=== PATIENT | female | born 1980 | race African-American/Black ===

== ENCOUNTER 2016-09-27 11:01 | Emergency (ER) | payer MEDICAID, OTHER ==
[~2016-09-27] VITALS: Ht 157.5 cm; Wt 72.7 kg
[~2016-09-27 11:01] MED LIST: IBUP-1827 PO; IMI25 PO; PROM25TA14 PO
[2016-09-27 11:13] VITALS: BP 114/85; PULSE 80; RESP 16; O2SAT 100
[2016-09-27 11:51] LABS: BASOPHILS % (AUTO) 0.4 % (0-3); EOSINOPHILS % (AUTO) 0.7 % (0-5); MONOCYTES % (AUTO) 7.9 % (4-12); Mean Corpuscular Hemoglobin 23.1 pg (27.0-35.0); Mean Corpuscular Volume 72.4 fL (81-100); NEUTROPHILS % (AUTO) 51.1 % (40-74); Platelet Count 317 bil/L (150-400)
[2016-09-27 12:33] LABS: Magnesium 1.9 mg/dL (1.6-2.6)
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
[2016-09-27 12:56] LABS: APPEARANCE,URINE HAZY (CLEAR,HAZY); COLOR,URINE STRAW (YELLOW); OCCULT BLOOD,URINE NEGATIVE (NEGATIVE); UROBILINOGEN,URINE NORMAL (NORMAL)
[2016-09-27] MEDS ORDERED: 0.9% Sodium Chloride 1,000 ML IV ONE (12:58)
[2016-09-27] MEDS ORDERED: MetoCLOpramide 5 mg/mL 2 mL Inj IVPUSH ONE (13:00)
== END 2016-09-27 13:37 | disposition home or self-care (01) ==
LOC: SED 11:01
DX: O99.351 Diseases of the nervous system complicating pregnancy, first trimester (principal); G43.909 Migraine, unspecified, not intractable, without status migrainosus; F17.200 Nicotine dependence, unspecified, uncomplicated; Z3A.01 Less than 8 weeks gestation of pregnancy; Z88.8 Allergy status to other drugs, medicaments and biological substances
CPT/HCPCS: 36415; 80053; 81000; 81025; 83735; 84702; 85025; 87086; 87088; 96361; 96374; 96375; 99285; J1200; J2765; J7030

== ENCOUNTER 2016-10-06 15:49 | Emergency (ER) | payer OTHER ==
[~2016-10-06] VITALS: Ht 160 cm; Wt 73.6 kg
[2016-10-06 16:08] VITALS: BP 111/68; PULSE 100; RESP 18; O2SAT 100
[2016-10-06 17:16] LABS: BASOPHILS % (AUTO) 0.1 % (0-3); EOSINOPHILS % (AUTO) 0.9 % (0-5)
[2016-10-06 17:20] LABS: MONOCYTES % (AUTO) 6.8 % (4-12); Mean Corpuscular Hemoglobin 22.9 pg (27.0-35.0); Mean Corpuscular Volume 72.4 fL (81-100); NEUTROPHILS % (AUTO) 59.3 % (40-74); Platelet Count 284 bil/L (150-400)
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
[2016-10-06 20:11] LABS: APPEARANCE,URINE CLEAR (CLEAR,HAZY); COLOR,URINE YELLOW (YELLOW); OCCULT BLOOD,URINE NEGATIVE (NEGATIVE); UROBILINOGEN,URINE NORMAL (NORMAL)
--- NOTE | 2016-10-06 20:21 | DRSVH ---
PROCEDURE: US OB<14 WKS+OB TRANSVAG INDICATIONS: ,RLQ pain,spotting, 22K quant OUTSIDE/PRIOR DATING DATA: Last menstrual period (LMP): Not known. LMP-based estimated date of delivery (ALEX): Not applicable. First dating scan (date and location): 10/06/16. Estimated date of delivery (ALEX) from first dating scan: 06/02/17. TECHNIQUE: Real-time scanning was performed of the fetus and maternal pelvic organs, with image documentation. Endovaginal scanning was also performed to better visualize the fetus and maternal ovaries. COMPARISON: None. FINDINGS: Embryo: [place]-rump length measures 0. To 6 cm corresponding to ultrasound estimated gestational age of 5 weeks 6 days. The heart rate measured at the 97 beats per minute. Measurement variability in dating: +/- 4 weeks by LMP, +/- 7 days by mean sac diameter (use before 6 weeks gestation if crown-rump length not able to be measured), +/- 5 days by crown-rump length (6-12 weeks gestation). Maternal organs: A 2.5 x 1.8 x 1.9 cm left corpus luteal cyst is noted. Small amount of free fluid is noted just to the left adnexa. Right adnexa sonographically normal. Limited images through the k idneys demonstrate no hydronephrosis. IMPRESSION: Early intrauterine with ultrasound estimated age of 5 weeks 6 days correspondi ng to ultrasound ALEX of 06/02/17. Dictated by: Dolly Ruiz MD, PhD on 10/06/2016 at 20:17 Approved by: Dolly Ruiz MD, PhD on 10/06/2016 at 20:19
[2016-10-06 20:22] VITALS: BP 105/63; PULSE 77; RESP 18; O2SAT 99
== END 2016-10-06 20:35 | disposition home or self-care (01) ==
LOC: SED 15:49
DX: O46.91 Antepartum hemorrhage, unspecified, first trimester (principal); O99.331 Smoking (tobacco) complicating pregnancy, first trimester; O99.011 Anemia complicating pregnancy, first trimester; R10.30 Lower abdominal pain, unspecified; Z3A.01 Less than 8 weeks gestation of pregnancy; Z88.8 Allergy status to other drugs, medicaments and biological substances

== ENCOUNTER 2017-05-31 01:14 | Inpatient (IN) | payer OTHER ==
[~2017-05-31] VITALS: Ht 157.5 cm; Wt 80.3 kg
[2017-05-31] MEDS ORDERED: Penicillin G K Inj 5,000,000 UNITS in Dextrose 5% Minibag Plus 100 ML IV ONE (09:35)
[2017-05-31] MEDS ORDERED: Ondansetron 2 mg/mL 2 mL Inj IVPUSH PRN (09:35)
[2017-05-31] MEDS ORDERED: Oxytocin 10 Unit/mL Inj IM PRN (09:35)
[2017-05-31] MEDS ORDERED: Carboprost 250 mCg/mL Inj IM PRN (09:35)
[2017-05-31] MEDS ORDERED: Sodium Chloride LOK Flush 10 mL Syringe IVFLUSH PRN (09:35)
[2017-05-31] MEDS ORDERED: Oxytocin 30 Units/500 mL LR 30 UNITS in IV Premix 1 EACH IV PRN (09:35)
[2017-05-31] MEDS ORDERED: Hemorrhage Kit, Post Partum XX ONE (09:35)
[2017-05-31] MEDS ORDERED: Methylergonovine 0.2 mg/mL Inj IM PRN (09:35)
[2017-05-31 10:19] LABS: Mean Corpuscular Hemoglobin 23.3 pg (27.0-35.0); Mean Corpuscular Volume 76.7 fL (81-100)
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
--- NOTE | 2017-05-31 14:06 | PCM.PNOBIP ---
Subjective Date of Service May 31, 2017 Delivery plan: Spontaneous Vaginal Delivery Visit History Interim progress s/p cervidil placement @ 1122 this AM. Subjective No complaints. No RUC or SROM. Maternal Date/Time of ROM: N/A Pain Management: No or Minimal Pain Gastrointestinal: Good Appetite Activity: Ambulating in Room Only Group B Strep Results: Positive Rubella: Immune Blood Type: O Labs Laboratory Tests 05/31/17 08:00: White Blood Count 7.2, Red Blood Count 4.03, Hemoglobin 9.4, Hematocrit 30.9, Mean Corpuscular Volume 76.7, Mean Corpuscular Hemoglobin 23.3, Mean Corpuscular Hemoglobin Concent 30.4, Red Cell Distribution Width 16.9, Platelet Count 192 Exam Vital Signs Vital Signs Contraction frequency in minutes: MVUs: Vital Signs: VS reviewed, stable Heart Tracings Heart Tones Baseline 120 bpm Heart Rate Variability: Moderate Heart Rate Accelleration: Present Heart Rate Deceleration: Absent Heart Rate Category: I Tocometry/IUPC Contraction frequency in minutes: MVUs: Sterile Vaginal Exam Not repeated at this time. Exam Abdomen: Fundus firm Lungs: Clear to Auscultation, Normal Air Movement Heart: Exam Unremarkable, Regular Rate/Rhythm, Normal S1, Normal S2, No Murmurs /Rubs/Gallops General: Alert, Oriented X3, Cooperative, No Acute Distress OB Intrapartum Assessment/Plan Intrapartum plan: Continue expected management (Will re-evaluate cervix later this afternoon and consider placement of a cervical balloon catherter.) Pain Evaluation: Adequate Pain Control VTE Mechanical Devices: Intermittant Pneumatic CD Time Spent: 10 minutes Cristino Medeiros MD May 31, 2017 2:06 pm
[2017-05-31] MEDS ORDERED: Penicillin G K Inj 3,000,000 UNITS in IV Premix 1 EACH IV SCH (16:30)
--- NOTE | 2017-05-31 20:01 | PCM.PNOBIP ---
Subjective Date of Service May 31, 2017 Delivery plan: Spontaneous Vaginal Delivery Visit History Interval intrapartum assessment Subjective No significant contractions. Good FM. BOWI. Maternal Date/Time of ROM: N/A Pain Management: No or Minimal Pain Gastrointestinal: Good Appetite Activity: Ambulating in Room Only Group B Strep Results: Positive Rubella: Immune Blood Type: O Labs Laboratory Tests 05/31/17 08:00: White Blood Count 7.2, Red Blood Count 4.03, Hemoglobin 9.4, Hematocrit 30.9, Mean Corpuscular Volume 76.7, Mean Corpuscular Hemoglobin 23.3, Mean Corpuscular Hemoglobin Concent 30.4, Red Cell Distribution Width 16.9, Platelet Count 192 Exam Vital Signs Vital Signs Contraction frequency in minutes: MVUs: Heart Tracings Heart Tones Baseline 120 bpm Heart Rate Variability: Moderate Heart Rate Accelleration: Present Heart Rate Deceleration: Absent Heart Rate Category: I Tocometry/IUPC Contraction frequency in minutes: N/A MVUs: Sterile Vaginal Exam 50-60%/FT/Soft/Posterior/-3; Roach's score 3-4. Unable to safely place cervical balloon. Exam Abdomen: Fundus firm, Abdomen non-tender Lungs: Clear to Auscultation, Normal Air Movement Heart: Exam Unremarkable, Regular Rate/Rhythm, Normal S1, Normal S2, No Murmurs /Rubs/Gallops General: Alert, Oriented X3, Cooperative, No Acute Distress OB Intrapartum Assessment/Plan Assessment As before; little progress with first round of cervidil. Intrapartum plan: Continue expected management (Unable to place a cervical balloon catheter at this point. Will place second cervidil after removal of the first @ 2300. At that point she can be up to the shower before the second cervidil is placed.) Pain Evaluation: Adequate Pain Control VTE Mechanical Devices: Intermittant Pneumatic CD Time Spent: 15 minutes Cristino Medeiros MD May 31, 2017 8:00 pm
--- NOTE | 2017-06-01 06:41 | PCM.PNOBIP ---
Subjective Date of Service Jun 01, 2017 Delivery plan: Spontaneous Vaginal Delivery Visit History BP: 118/70, P:97, Temp:97.9F Ricarda Musa is a at 39 weeks 6 days who presented to the [facility] yesterday, 05/31, for a scheduled induction. Patient received Cervidil at 11:43pm yesterday and at 2:46 am this morning. Patient's cervical exam as of 535 is 3cm , 70% effaced, -2 station and posterior. She is having mild contractions every 1.5-5mins. External monitoring shows a FHT: 130, moderate variability, positive accelerations and no decelerations. The patient states that her contractions are getting increasing painful at a 5/10 in severity this morning. She denies any nausea or vomiting. Patient has a history of smoking 5-10 cigarettes per day throughout her and states that she would like a nicotine patch. She states that she is hoping to quit smoking after delivery. We will send her home with nicotine patches. Maternal Date/Time of ROM: N/A Pain Management: No or Minimal Pain Gastrointestinal: Good Appetite, No N/V Activity: Ambulating in Room Only Group B Strep Results: Positive Rubella: Immune Blood Type: O Labs Laboratory Tests 05/31/17 08:00: White Blood Count 7.2, Red Blood Count 4.03, Hemoglobin 9.4, Hematocrit 30.9, Mean Corpuscular Volume 76.7, Mean Corpuscular Hemoglobin 23.3, Mean Corpuscular Hemoglobin Concent 30.4, Red Cell Distribution Width 16.9, Platelet Count 192 Exam Vital Signs Vital Signs Contraction frequency in minutes: MVUs: Vital Signs: VS reviewed, stable Heart Tracings Heart Tones Baseline bpm Heart Rate Variability: Moderate Heart Rate Accelleration: Present Heart Rate Deceleration: Absent Heart Rate Category: I Tocometry/IUPC Contraction frequency in minutes: 1.5 to 5 minutes Sterile Vaginal Exam Cervical Dilation: 3 cms Cervical Effacement: 70 % Station: -2 Exam Abdomen: Fundus firm, Abdomen non-tender Lungs: Clear to Auscultation, Normal Air Movement Heart: Exam Unremarkable, Regular Rate/Rhythm, Normal S1, Normal S2, No Murmurs /Rubs/Gallops General: Alert, Oriented X3, Cooperative, No Acute Distress OB Intrapartum Assessment/Plan Assessment # scheduled induction of labor - Continue induction and augmentation orders - Continue Cervidil - Will perform AROM #GBS + status - Continue IV PCN #GDM - Continue blood glucose monitoring - Continue glyburide # Tobacco use in - Nicotine patch ordered - Advised tobacco cessation - Will send home with Rx for nicotine patch #History of PPH - Cytotec PRN Intrapartum plan: Continue expected management (Unable to place a cervical balloon catheter at this point. Will place second cervidil after removal of the first @ 2300. At that point she can be up to the shower before the second cervidil is placed.) Pain Evaluation: Adequate Pain Control Intrapartum Antibiotics: Penicilln VTE Mechanical Devices: Intermittant Pneumatic CD Attending Statement Patient seen and examined. The initial RN check noted 3/70/-2 with appropriate bobo score, with change in shift she was rechecked by a new nursing staff who noted she was 2/50/-3 and posterior. Due to this plans to proceed with amniotomy will be deferred in lieu of continued cervical ripening. Cytotec 25mcg was placed PV by the nurse will continue until cervix is favorable with bobo score >8, and then proceed with pitocin per protocol. Kim Marion DO Jun 01, 2017 06:41 Alisa Lee MD Jun 01, 2017 14:04
--- NOTE | 2017-06-01 07:21 | PCM.PNOBIP ---
Subjective Date of Service Jun 01, 2017 Delivery plan: Spontaneous Vaginal Delivery Visit History Interval labor progress Subjective Increased contractions but well tolerated. C/O obstipation and requests relief via suppository or enema. Maternal Date/Time of ROM: N/A Pain Management: No or Minimal Pain Gastrointestinal: Good Appetite, No N/V Activity: Ambulating in Room Only Group B Strep Results: Positive Rubella: Immune Blood Type: O Labs Laboratory Tests 05/31/17 08:00: White Blood Count 7.2, Red Blood Count 4.03, Hemoglobin 9.4, Hematocrit 30.9, Mean Corpuscular Volume 76.7, Mean Corpuscular Hemoglobin 23.3, Mean Corpuscular Hemoglobin Concent 30.4, Red Cell Distribution Width 16.9, Platelet Count 192 Exam Vital Signs Vital Signs Contraction frequency in minutes: MVUs: Heart Tracings Heart Tones Baseline 125 bpm Heart Rate Variability: Moderate Heart Rate Accelleration: Present Heart Rate Deceleration: Absent Heart Rate Category: I Tocometry/IUPC Contraction frequency in minutes: MVUs: Sterile Vaginal Exam Cervical Dilation: 3 cms Cervical Effacement: 70 % Station: -2 Exam Abdomen: Fundus firm, Abdomen non-tender Lungs: Clear to Auscultation, Normal Air Movement Heart: Exam Unremarkable, Regular Rate/Rhythm, Normal S1, Normal S2, No Murmurs /Rubs/Gallops General: Alert, Oriented X3, Cooperative, No Acute Distress OB Intrapartum Assessment/Plan Assessment Fecal obstipation. Intrapartum plan: Continue expected management (Will provide PRN glycerin suppository.) Pain Evaluation: Adequate Pain Control Intrapartum Antibiotics: Penicilln VTE Mechanical Devices: Intermittant Pneumatic CD Cristino Medeiros MD Jun 01, 2017 7:21 am
[2017-06-01] MEDS: Penicillin G K Inj 3,000,000 UNITS in IV Premix 1 EACH IV SCH ×4 (08:00→22:41)
[2017-06-01] MEDS ORDERED: Penicillin G K Inj 5,000,000 UNITS in Dextrose 5% Minibag Plus 100 ML IV ONE (08:15)
[2017-06-01] MEDS: Lactated Ringer's 1,000 ML IV PRN ×2 (10:05→14:57)
[2017-06-01] MEDS ORDERED: Misoprostol 25 mCg/0.25 Tablet VAGINAL PRN (11:55)
--- NOTE | 2017-06-01 17:53 | PCM.PNOBIP ---
Subjective Date of Service Jun 01, 2017 Delivery plan: Spontaneous Vaginal Delivery Maternal Date/Time of ROM: N/A Pain Management: No or Minimal Pain Gastrointestinal: Good Appetite, No N/V Activity: Ambulating in Room Only Group B Strep Results: Positive Rubella: Immune Blood Type: O Labs Laboratory Tests 05/31/17 08:00: White Blood Count 7.2, Red Blood Count 4.03, Hemoglobin 9.4, Hematocrit 30.9, Mean Corpuscular Volume 76.7, Mean Corpuscular Hemoglobin 23.3, Mean Corpuscular Hemoglobin Concent 30.4, Red Cell Distribution Width 16.9, Platelet Count 192 Exam Vital Signs Vital Signs Contraction frequency in minutes: MVUs: Heart Tracings Heart Tones Baseline bpm Heart Rate Category: I Tocometry/IUPC Contraction frequency in minutes: MVUs: Sterile Vaginal Exam Cervical Dilation: 4 cms Cervical Effacement: 50 % Station: -2 Exam General: Alert, Oriented X3, Cooperative OB Intrapartum Assessment/Plan Intrapartum plan: Continue expected management (AROM completed at bedside / -2 with return of clear fluid- will continue expectant management will start pitocin if no foreign exchange clerk next several hours) Pain Evaluation: Adequate Pain Control Intrapartum Antibiotics: Penicilln VTE Mechanical Devices: Intermittant Pneumatic CD Alisa Lee MD Jun 01, 2017 17:53
[2017-06-01] MEDS ORDERED: Lactated Ringer's 500 ML IV ONE (19:49)
[2017-06-01] MEDS: Lactated Ringer's 1,000 ML IV SCH (19:49)
[2017-06-01] MEDS ORDERED: Atropine 1 mg/10 mL (Code) Syringe IVPUSH PRN (19:50)
[2017-06-01] MEDS ORDERED: fentaNYL 2 mCg/mL-Bupiv 0.125% 100 ML EPIDURAL SCH (19:50)
[2017-06-01] MEDS ORDERED: EPHEDrine Sulfate 50 mg/mL Inj IVPUSH PRN (19:50)
[2017-06-01] MEDS ORDERED: Ondansetron 2 mg/mL 2 mL Inj IVPUSH PRN (19:50)
[2017-06-01] MEDS ORDERED: fentaNYL 2 mCg/mL-Bupivicaine 0.125% 100 mL Premix EPIDURAL ONE (19:53)
--- NOTE | 2017-06-01 19:53 | PCM.HPANE ---
Patient Data Surgeon Admitting Provider:Sixto Aranda MD Attending Provider:Sixto Aranda MD Primary Care Physician:Ysabel Summers CNM Other Provider:Jacqueline Franco Anesthesia Reason for Visit Induction INDUCTION Ht/WT & BMI Body Mass Index Allergies Coded Allergies: metoclopramide (Unverified Allergy, Unknown, 10/06/16) Past Anesthesia History Anesthesia History: Denies:: Abnormal Airway, Anesthesia Reactions, Difficult Intubation, Fam Anesthesia Reaction, Fam Malignant Hypertherm, Malignant Hyperthermia Diabetes History Hx Diabetes?: Yes Medications Active Scripts Promethazine 25 Mg [id number] Mg PO Q6H PRN Migraine or Nausea #30 TABLET Ref 1 Prov:Renato Rowe MD 06/30/16 Sumatriptan (Imitrex)25 Mg [id number] Mg PO Q2H #10 TABLET Ref 3 Prov:Renato Rowe MD 06/30/16 Ibuprofen 600 Mg [id number] Mg PO QID PRN For Pain #40 TABLET Prov:Kal Castelan MD 05/08/16 History History of ENT Problems?: No HEENT History: Denies:: Abnormal Airway Cataracts Difficult Intubation Dysphagia Glaucoma Hearing Problem Sinus Problem TMJ Denture Type: None Teeth Condition: Within Normal Limits Hx of Heart Problems?: No Cardiovascular History: Denies:: AICD Abdominal Aortic Aneurism Atrial Fibrillation Cardiac Surgery Chest Pain Congestive Heart Failure Coronary Artery Disease Edema Heart Murmur Hypertension Irregular Heartbeat Pacemaker Peripheral Vascular Rheumatic Fever Thrombophlebitis Valvular Heart Disease Hx of Respiratory Problem?: No Respiratory History: Denies:: Asthma COPD Chest Surgery Cough Dyspnea Emphysema Hemoptysis Oxygen Administration Pneumonia Pulmonary Embolism Tuberculosis Use of C-PAP Machine Use of Inhalers / NEBS Hx Neurologic Problems?: No Neurological History: Denies:: Alzheimer's Disease CVA Dementia Dizziness Headaches Multiple Sclerosis Parkinson's Disease Peripheral Neuropathy Seizures TIA Hx of GI Problems?: No Gastrointestinal History: Denies:: Cirrhosis Diverticulitis Gall Bladder Disease Gastroesphageal Reflux Gastrointestinal Bleeding Heartburn Hepatitis Hiatal Hernia Liver Disease Rectal Bleeding Hx of Problems?: No Genitourinary History: Denies:: HX of Hemodialysis Kidney Stones Urinary Tract Infection HX of Peritoneal Dialysis: No Female Hx: Positive for:: Currently Other History/Comment at term for intuction, GDM Hx Musculoskeletal Problems?: No Hx of Psycho/Social Problems?: No Hx Surgeries?: No Hx Diabetes: No Other History/Comment Thallesemia trait Hx Alcohol Use: NoHx Substance Use: No Smoking Status: Current Every Day Smoker (5-10 cigarettes per day ) Have You Smoked inLast 12 mo: Yes Stop/Bang Treated for Sleep Apnea?: No Do You Have a CPAP Machine?: No Risk Assessment Category Category 1A: Patient has history of documented sleep apnea, and HAS NOT received any narcotic, sedative or anesthesia administration during this stay. Category 1B: Patient has history of documented sleep apnea, and HAS received any narcotic , sedative or anesthesia administration during this stay Category 2: Patient has SUSPECTED Obstructive Sleep Apnea, and HAS received any narcotic , sedative or anesthesia administration during this stay. Category 3: Patient has SUSPECTED Obstructive Sleep Apnea and HAS NOT received narcotic, sedative or anesthesia administration during this stay. Category 4: Outpatient in Procedural Areas with known sleep apnea or who screen positive for High Risk via the STOP/BANG questionnaire. Exam Exam General Appearance: Alert, Oriented X3, Cooperative HEENT/AIRWAY: MP 2 Lungs: Clear to Auscultation, Normal Air Movement Heart: Exam Unremarkable, Regular Rate/Rhythm, No Murmurs/Rubs/Gallops Meds/Labs/Diagnostics Admission Meds Current Medications Glyburide (Micronase) 2.5 mg BIDAC PO Last administered on 06/01/17 17:16; Start 06/01/17 at 07:30 Zolpidem Tartrate (Ambien) 10 mg ONCE ONCE PO Last administered on 05/31/17 23:26; Start 05/31/17 at 20:10; Stop 05/31/17 at 20:19; Status DC Dinoprostone (Cervidil Vaginal Insert) 10 mg ONCE ONCE VAGINAL Last administered on 06/01/17 02:46; Start 06/01/17 at 02:00; Stop 06/01/17 at 05:18 ; Status DC Nicotine 1 patch 1 patch DAILY TOPICAL Last administered on 06/01/17 08:36; Start 06/01/17 at 08:30 Penicillin G Potassium/ Dextrose [id number] units/Premix 50 ml @ 100 mls/hr Q4H IV Last administered on 06/01/17 18:28; Start 06/01/17 at 08:00 Penicillin G Potassium/ Dextrose/Water (Pfizerpen Inj/ D5W Minibag Plus) 100 ml @ 240 mls/hr ONCE ONCE IV Last administered on 06/01/17t 10:06; Start at 08:15; Stop 06/01/17 at 08:39; Status DC Labs Test 05/31/17 08:00 White Blood Count 7.2th/mm3 (3.8-10.1) Red Blood Count 4.03mil/mm3 (3.90-5.20) Hemoglobin 9.4g/dL (12.0-15.6) Hematocrit 30.9% (35.0-46.0) Mean Corpuscular Volume 76.7fL (81-100) Mean Corpuscular Hemoglobin 23.3pg (27.0-35.0) Mean Corpuscular Hemoglobin Concent 30.4% (32.0-37.0) Red Cell Distribution Width 16.9% (12.3-15.4) Platelet Count 192bil/L (150-400) Plan Impression Patient chart reviewed, patient interviewed and anesthestic plan with risks, benefits, and alternatives discussed, and informed consent obtained. ASA Physical Status: ASA2 Mod Systemic Disease Anesthetic Plan: Epidural Bene/Risks/Altern/Consents: Yes HP Complete Prior to Induction: Yes Miah Gary MD Jun 01, 2017 19:53
[2017-06-01] MEDS ORDERED: Oxytocin 30 Units/500 mL LR 30 UNITS in IV Premix 1 EACH IV SCH (22:20)
[2017-06-02] MEDS: Sodium Chloride LOK Flush 10 mL Syringe IVFLUSH SCH ×3 (00:30→16:30)
[2017-06-02] MEDS ORDERED: Hemorrhage Kit, Post Partum XX ONE (01:25)
[2017-06-02] MEDS ORDERED: Oxytocin 30 Units/500 mL LR 30 UNITS in IV Premix 1 EACH IV PRN (01:25)
[2017-06-02] MEDS ORDERED: Carboprost 250 mCg/mL Inj IM PRN (01:25)
[2017-06-02] MEDS: Lactated Ringer's 1,000 ML IV SCH ×5 (01:25→17:25)
[2017-06-02] MEDS ORDERED: oxyCODONE-Acetamin 5-325 mg Tablet PO PRN (01:25)
[2017-06-02] MEDS ORDERED: Methylergonovine 0.2 mg/mL Inj IM PRN (01:25)
[2017-06-02] MEDS ORDERED: Benzocaine (Dermoplast) 20% 60 Gm Spray TOPICAL PRN (01:25)
[2017-06-02] MEDS ORDERED: Oxytocin 10 Unit/mL Inj IM PRN (01:25)
[2017-06-02] MEDS ORDERED: Witch Hazel-Glycerin Pads TOPICAL PRN (01:25)
--- NOTE | 2017-06-02 01:34 | PCM.OBVAG ---
Vaginal Delivery Date of Service Jun 02, 2017 Pre Operative Diagnosis Pre Operative Diagnosis Scheduled inducted at 39 weeks, 5 days Post Operative Diagnosis Post Operative Diagnosis Vaginal Delivery at 39 weeks, 5 days Procedure Obstetical Procedure: Normal Spontaneous Vaginal Delivery Director Supplier Quality/Audio Production Instructor Provider and Audio Production Instructor: MD Kim Cortez DO R1 Indication for Procedure Induction: Induction of labor, AROM Findings Obstetrical Findings: (Male), Cord (3 Vessel), Placenta (Intact/Normal) , Perineal Laceration (1st degree) Analgesia/Medications Obstetrical Anesthesia: Epidural Procedure Details Procedure Details The patient was noted to be complete and pushing. She continued to push, and the 's vertex did deliver spontaneously in the LISA position over an intact perineum. There was a single nuchal cord and the infant was delivered through this. The anterior shoulder delivered easily, followed by the posterior shoulder. The remainder of the infant was then easily delivered. After a 60 second cord clamping delay, the cord was then clamped and cut and the was placed upon the mother's abdomen where nursing personnel were in attendance. Cord blood was obtained. The placenta delivered intact spontaneously after Pitocin was started per protocol and was passed off the table. Examination of the perineum showed a small first-degree laceration which was repaired with a single [id number] stitch of 4-0 Vicryl. She tolerated this procedure well. Recovered in labor and delivery with her infant. All sponge, needle, and instrument counts were correct. Blood Loss & Administration Estimated Blood Loss: 250 Post Procedure Plan Post delivery Condition: Mom stable, Baby stable to nursery VTE Prophylaxis: Kim Sosa DO Jun 02, 2017 01:34
[2017-06-02] MEDS: Penicillin G K Inj 3,000,000 UNITS in IV Premix 1 EACH IV SCH ×6 (04:00→20:00)
[2017-06-02] MEDS ORDERED: Promethazine 25 mg Rectal Suppository RECTAL PRN (20:15)
[2017-06-03 00:05] LABS: Mean Corpuscular Hemoglobin 23.8 pg (27.0-35.0); Mean Corpuscular Volume 74.9 fL (81-100)
[2017-06-03] MEDS: NIFEdipine 30 mg ER24 Tablet PO SCH ×2 (00:06→08:01)
--- NOTE | 2017-06-03 00:28 | PCM.PNOBPP ---
Subjective Date of Service Jun 03, 2017 Post : Spontaneous Vaginal Delivery Subjective No headache, change in vision, nausea/vomiting or abdominal pain. Pain Management: No or Minimal Pain Gastrointestinal: Good Appetite, No N/V Postop Activity: Ambulating in Room Only Group B Strep Results: Positive Rubella: Immune Blood Type: O Labs Laboratory Tests 06/02/17 06:55: Hold Purple Top Tube Received 06/03/17 00:02: White Blood Count 9.8, Red Blood Count 3.83, Hemoglobin 9.1, Hematocrit 28.7, Mean Corpuscular Volume 74.9, Mean Corpuscular Hemoglobin 23.8, Mean Corpuscular Hemoglobin Concent 31.7, Red Cell Distribution Width 16.7, Platelet Count 184 Exam Vital Signs Vital Signs VBP 180/102 176/79 193/88 Vital Signs: VS reviewed, concerns are OB Post Assessment/Plan Assessment Dimple Tello is a 38 year-old Obstetrical Complications: Gestational Diabetes History of preeclampsia in early third trimester in previous induced 37-38 weeks. Thalassemia trait PPD#1 Sever elevation in BP , asymptomatic, labs pending. Start Procardia XL 30 mg daily , repeat BP in 2 hours will consider increasing procardia dose if needed. Goal BP less than 160/100. May consider to start magnesium if symptomatic or abnormal labs. Seizure precautions. Pain Evaluation: Adequate Pain Control VTE Mechanical Devices: Intermittant Pneumatic CD Siria Faye MD Jun 03, 2017 00:28
[2017-06-03] MEDS: Sodium Chloride LOK Flush 10 mL Syringe IVFLUSH SCH ×3 (00:30→16:30)
[2017-06-03] MEDS: Lactated Ringer's 1,000 ML IV SCH ×2 (01:25→09:25)
[2017-06-03] MEDS: Penicillin G K Inj 3,000,000 UNITS in IV Premix 1 EACH IV SCH ×5 (04:00→16:00)
--- NOTE | 2017-06-03 06:35 | PCM.DIOB ---
Obstetrical Disch Instruction Date of Service: Jun 03, 2017 Dates of Hospitalization Date of Hospital Admission May 31, 2017 at 07:39 Providers Admitting Physician: Sixto Aranda MD Primary Care Physician: Ysabel Summers CNM Attending Physician: Sixto Aranda MD Discharge Diagnosis Discharge Diagnosis at 39 weeks, 5 days Post Operative diagnosis at 39 weeks, 5 days Problems: Diet Discharge Diet: No restrictions Activity Discharge Activity-General: Pelvic Rest for 6 weeks, Balance rest and activity , No lifting >15 pounds for 2 weeks Dressing and Incisional Care Hygiene: May shower, DO NOT soak incision under water, NO bathtub, hot tub or whirlpool, Perineal care, Witch [place]ashon pads Additional Instructions Discharge Instructions You have been given a prescription for ibuprofen for pain. You have also been provided a prescription for docusate a stool softener. Please take docusate sodium so that you do not become constipated. If you experience any increased bleeding please call [facility]. If you begin to experience dizziness weakness or large amount of bleeding go to the emergency room. This means if you soak 2 or more pads for more than 2 hours than call the clinic or go to the Emergency Room. You have been set up for an appointment for follow-up in 1 week at [facility]. Please check your BP several times between now and then and write them in a log to bring to the office in 1 week for your clinic visit. You have been prescribed a new blood pressure medication called Labetalol. Take this medication daily and monitor your blood pressures. If you develop severe headaches, vision changes, increasing swelling in your hands or feet, please follow up with us sooner. If you experience depression, Please seek help by calling [facility] or the Emergency Room. Nothing per vagina for 6 weeks (this includes tampons and intercourse). If your breast become red and warm and swollen continue to nurse and seek medical attention for evaluation for mastitis. Drink plenty of water and eat lots of fruits and vegetables. If you spike a fever in the next 1 week please call [facility]. Follow Up Plan Follow Up Plan follow up 1 week Follow-up appointment: Weeks (1) Call your provider for: Fever or Chills, Shortness of breath, Heavy vaginal bleeding Kim Marion DO Jun 03, 2017 06:35
[2017-06-03] MEDS ORDERED: IBUP800T28 PO (06:39)
[2017-06-03] MEDS ORDERED: DOCU-41 PO (06:39)
[2017-06-03] MEDS ORDERED: NICO-206 TOPICAL (06:39)
--- NOTE | 2017-06-03 06:51 | PCM.DC.OB ---
Obstetrical Discharge Summary Date of Service Jun 03, 2017 Date of hospital admission May 31, 2017 at 07:39 Date of Discharge: Jun 03, 2017 Providers Admitting Physician: Sixto Aranda MD Primary Care Physician: Ysabel Summers CNM Attending Physician: Sixto Aranda MD Diagnosis at Time of Discharge at 39 weeks, 5 days Problems: Brief History and Physical: Dimple Tello is a 38 year-old with GDM and thalassemia trait who presents to the [facility] for a scheduled induction. Blood type is O+, negative antibody screen. She is GBS +, rubella immune, varicella immune, HbsAG negative , Hep C negative, RPR negative, HIV negative, and GC Chlamydia negative. Cervix is currently 2cm, 40-50% effaced, -3 station, posterior and soft. Roach's score of 4. She is currently praful 2-7 minutes apart. Patient notes one episode of vaginal bleeding 2 weeks ago that resolved without intervention. With her history of GDM, she notes fasting blood sugars ranging from 76-120s. Denies any fever, chills, night sweats, chest pain, shortness of breath, vision changes or headaches. Hospital Course: Patient is a 38-year-old at 39 weeks and 5 days with GDM, RH(+), GBS (+) , Rubella immune, Varicella immune, who presented to [facility]D on 05/31/2017 for a scheduled induction. Patient has history of -induced hypertension. General: Alert and oriented 3 no acute distress resting comfortably in the bed. HEENT: Head normocephalic atraumatic no ecchymoses, eyes equally round , nares patent, Chest: Heart regular rate and rhythm, no murmurs, lungs: CTAB all john Abdomen: Nontender, , fundus firm just below the level of the umbilicus, no rebound no tenderness no guarding. Genitourinary: No CVA tenderness Extremities: Minimal edema non-pitting bilaterally the level of the ankles, pulses equal bilaterally Psychiatric: Patient's mood is and affect is congruent, she is cheerful and communicative. Hospital Course: Patient is 38-year-old with GDM and hx of induced HTN in a previous , who was admitted to the center for induction at 39 weeks, 5 days. with artificial rupture of membranes at 1753. Patient progressed through all stages of labor without difficulty and minimal pain with IV sedation resulting in . Mother gave to baby male, at 0134. Estimated blood loss was 250 mL. The following day after delivery, the patient's blood pressures spiked, the highest being 193/88. They have since decreased to 131/78 with administration of Nifedipine. Since that time patient is recovering well has appetite, is walking, has passed a bowel movement without difficulty, is voiding without difficulty. Patient was d/c home with follow up in 1 week. She was advised to keep track of her BP and write them down. Docusate Sodium (Colace) 100 Mg Capsule 100 MG PO DAILY Prescribed by: KIM MARION DO Ibuprofen (Ibuprofen) 600 Mg Tablet 600 MG PO QID PRN PRN For Pain Prescribed by: ALEXANDRA BUSTOS MD Ibuprofen (Ibuprofen) 800 Mg Tablet 800 MG PO Q6H PRN PRN For Pain Prescribed by: KIM MARION DO Nicotine 7 mg/24 hr Patch (Nicotine 7 mg/24 hr Patch) 1 Each Patch.td24 1 PATCH TOPICAL DAILY Prescribed by: KIM MARION DO Promethazine (Promethazine) 25 Mg Tablet 25 MG PO Q6H PRN PRN Migraine or Nausea Prescribed by: JENN ARGUELLO MD Sumatriptan (Imitrex) 25 Mg Tablet 25-50 MG PO Q2H Prescribed by: JENN ARGUELLO MD Follow-up plan follow up in 1 week in the clinic and keep a log of your blood pressures to bring in with you Discharge Diet: No restrictions Discharge Activity-General: Pelvic Rest for 6 weeks, Balance rest and activity , No lifting >15 pounds for 2 weeks Kim Marion DO Jun 03, 2017 06:51
[2017-06-03] MEDS ORDERED: LABE100T4 PO (14:03)
[2017-06-03 15:04] VITALS: BP 155/69; PULSE 92; RESP 18
--- NOTE | 2017-06-03 16:47 | NUR ---
Family Assessment 4pm 06/03/2017 Dimple Tello reports she lives w/ FOB Bishop Ellie and that he is a supportive participating available partner for the BB, Bishop Argueta Jr, and herself. She reports they will be living together w/ their 4 children. Pt denies any current depression, but does report that I have never gained so much weight before. It was very painful in comparison to other children I have borne. Pt denies any current CD Hx, CPS involvement, or legal issues. Pt does report she has drank EToH to curb her depression in the past, but not after the doctor told me I was . I dont do that. Pt denies any DV, or abuse. Pt reports no needs at this time as she, and the baby, are totally cared for. Pt and BB to d/c to their current living situation w/ mother to put [facility] PCP in place. Staff aware. Eliecer Valentin, GENERAL COUNSEL
== END 2017-06-03 17:31 | disposition home or self-care (01) | DRG 775 ==
LOC: FBC 07:39
PROVIDERS: ADMIT Legal Medicine; ATTEND Legal Medicine
PROC: 10H07YZ Insertion of Other Device into Products of Conception, Via Natural or Artificial Opening (ICD-10-PCS; 2017-05-31)
PROC: 3E033VJ Introduction of Other Hormone into Peripheral Vein, Percutaneous Approach (ICD-10-PCS; 2017-05-31)
PROC: 10E0XZZ Delivery of Products of Conception, External Approach (ICD-10-PCS; principal; 2017-06-02)
PROC: 0HQ9XZZ Repair Perineum Skin, External Approach (ICD-10-PCS; 2017-06-02)
PROC: 10907ZC Drainage of Amniotic Fluid, Therapeutic from Products of Conception, Via Natural or Artificial Opening (ICD-10-PCS; 2017-06-02)
DX: O24.429 Gestational diabetes mellitus in childbirth, unspecified control (principal); D56.3 Thalassemia minor; O75.89 Other specified complications of labor and delivery; O99.334 Smoking (tobacco) complicating childbirth; O99.824 Streptococcus B carrier state complicating childbirth; O70.0 First degree perineal laceration during delivery; Z3A.39 39 weeks gestation of pregnancy; Z37.0 Single live birth